=== PATIENT | male | born 1960 | race Caucasian/White ===

== ENCOUNTER 2016-12-06 17:25 | Emergency (ER) | payer OTHER ==
[~2016-12-06] VITALS: Ht 180.3 cm; Wt 99.8 kg
--- NOTE | ~2016-12-06 | US115 ---
[facility] A Service of [facility] & [facility] RADIOLOGY TEXT RESULTS PATIENT: MARIEL MADDEN LOCATION: NANCY : 58 UNIT #: [id number] AGE: [address]: Chung Hwang DO SEX: M ORDER DR: [id number] [facility] [address] [place], [place] [address] [id number] E MR#: [id number] #: [id number] NAME: MARIEL MADDEN : 1960 SEX: M STUDY DATE/TIME: 12/06/2016 18:35 UNIT: NANCY ROOM: STUDY DESCRIPTION: US Scrotum and Contents Attending Physician: Chung Hwang D.O. Ordering Physician: Chung Hwang D.O. Primary Care Physician: Prema Maharaj M.D. MEDICAL IMAGING REPORT This report is preliminary unless electronic signature is present EXAM Scrotal ultrasound 12/06/2016 HISTORY Left scrotal pain 4 hours with left flank pain. FINDINGS Real-time ultrasonography of the scrotal contents performed. Norris-scale color Doppler, Doppler pulse-wave interrogation utilized. No prior scrotal ultrasound for comparison. The right testis measures 4.33 cm x 2.30 cm x 2.67 cm. Arterial and venous flow present. The testis is normal in contour and echotexture with no testicular mass lesion seen. The right epididymis shows a cyst in the epididymal head region measuring 1.36 cm x 0.87 cm x 1.84 cm. It contains diffuse low-level internal echoes. This could be spermatozoa or debris within the cyst. The epididymis does not demonstrate hyperemia. No solid epididymal mass lesion is seen. There is a very small right hydrocele suggested. On the left the testis measures 4.36 cm x 2.43 cm x approximately 2.49 cm. There is arterial venous flow in the left testis. Along the inferolateral aspect of the left testis there is a large cystic structure measuring 3.25 cm x 2.16 cm x 2.72 cm. Homogeneous low-level internal echoes. Given its location I favor epididymal etiology. I favor that this is a very large epididymal cyst. I do not see mural nodularity or suspicious thick internal septations. The patient indicated to the urgent care nurse practitioner that there was a prior ultrasound. I do not have prior scrotal imaging at this institution. Comparison with prior studies recommended. Given the size of this finding, urology follow up is recommended. There is no free fluid in the left hemiscrotum. Within the left testis near the rete testis. There is a hypoechoic structure presumed to be a small cyst measuring 0.23 cm x 0.31 cm x 0.24 cm. Likely of rete testis. are derivation [facility] A Service of [facility] RADIOLOGY TEXT RESULTS PATIENT: MAR[facility]ADD[id number] [birth year] UNIT #: [id number] AGE: [address]: Chung Hwang DO SEX: M ORDER DR: IMPRESSION 1. The testes are normal in size and contour bilaterally with arterial and venous flow seen in the bilateral testes. 2. Within the left testis near the rete testis there is a markedly hypoechoic structure presumed to be a small cyst measuring up to about 3.1 mm in diameter and likely rete testis derivation. There is no clearly suspicious intratesticular abnormality. The patient gives a history of prior scrotal ultrasound. Comparison with prior study is recommended to confirm stability. In the absence of prior studies for comparison, consider 6-month ultrasound followup of this finding. 3. Within the left hemiscrotum in the region of the left epididymis there is a large cystic structure measuring up to 3.2 cm in diameter. It contains low-level internal echoes and is most consistent with large SPUR axial within the epididymis or a large epididymal cyst with internal debris. No solid component is suggested. No mural nodularity or thick internal septations. Again comparison with any prior studies would be useful. Given the size of the abnormality, consider urology followup for management. 4. In the right epididymal head there is a cyst/spermatocele measuring up to about 1.87 meters in maximum diameter. Again comparison with prior studies would be useful to assess for chronicity, any change in size. Dictated by... Tim Pinedo M.D. THIS IS AN ELECTRONICALLY VERIFIED REPORT Tim Pinedo M.D. at 12/07/2016 6:04 PM Zahra TD: 12/07/2016 08:06 JOB #: [id number] MEDICAL IMAGING REPORT Page 1 of 1 COPY
--- NOTE | ~2016-12-06 | CT4 ---
[facility] A Service of [facility] & [facility] RADIOLOGY TEXT RESULTS PATIENT: MARIEL MADDEN LOCATION: [facility] : 58 UNIT #: [id number] AGE: [address]: Chung Hawng DO SEX: M ORDER DR: [id number] [facility] [address] [place], [place] [address] [id number] E MR#: [id number] #: [id number] NAME: MARIEL MADDEN : 1960 SEX: M STUDY DATE/TIME: 12/06/2016 UNIT: NANCY ROOM: STUDY DESCRIPTION: CT Abd and Pelv Wo Cont Attending Physician: Chung Hwang D.O. Ordering Physician: Chung Hwang D.O. Primary Care Physician: Prema Maharaj M.D. MEDICAL IMAGING REPORT This report is preliminary unless electronic signature is present EXAM Abdomen and pelvis CT 12/07 at 00:01 hours INDICATIONS Left flank pain and left testicular pain that started today. Nausea and vomiting as well. History of kidney stones. TECHNIQUE Axial noncontrast images were obtained through the abdomen and pelvis. Multiplanar reformats were obtained. Comparison made with 07/13/2011. The CT exam was performed with one or more of the following radiation dose reduction techniques: automatic exposure control, adjustment of mA and/or kV according to patient size, and iterative reconstruction. . FINDINGS Abdomen: Granulomatous calcifications again noted in the left lung base. Gallbladder is contracted or surgically absent. Tiny nonobstructing stones are present in the right kidney. No ureteral stones are identified on either side and there is no hydronephrosis. The unenhanced solid organs are otherwise normal. Unopacified GI tract is normal. No free fluid is seen. Patient is status post aortobifemoral bypass. Patency of the graft cannot be assessed without IV contrast. Pelvis: There are no lower ureteral stones. The bladder is normal. The right anterior bladder extends toward a right inguinal hernia. This is less pronounced than on the old study. The appendix is normal. The remainder of the unopacified GI tract is normal as well. There is no free fluid. Postoperative changes noted in both groins. There is a stable circumscribed fluid collection anterior to the common femoral vasculature on the left. This could reflect a chronic postoperative seroma. It [facility] A Service of [facility] RADIOLOGY TEXT RESULTS PATIENT: MARIEL MADDEN LOCATION: [facility] : 58 UNIT #: [id number] AGE: [address]: Chung Hwang DO SEX: M ORDER DR: measures about 2 cm in diameter. Similar finding is present in the right side near the distal end of the graft. It measures about 1.9 cm. These lesions are indeterminate without IV contrast. 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 Fusion is noted at L2-3 with interbody spacer. There is sclerosis around the spacer. Degenerative disease does appear progressive. There is a right side L5 pars defect. IMPRESSION 1. No clearly acute process in the abdomen or pelvis. 2. Nonobstructing stones in the right kidney. No ureteral stones on either side and no hydronephrosis. 3. Normal unopacified GI tract, including the appendix. 4. Additional vascular findings as above. No free fluid in the abdomen or pelvis. Dictated by... Lenny Powell Jr., M.D. THIS IS AN ELECTRONICALLY VERIFIED REPORT Lenny Powell Jr., M.D. at 12/07/2016 9:35 PM RONDA/vipul TD: 12/07/2016 09:32 JOB #: [id number] MEDICAL IMAGING REPORT Page 1 of 1 COPY
[~2016-12-06 17:25] MED LIST: ABILIFY5 MG PO; ALLOPURINOL300 MG PO; AMBIEN PO; ARTHROTEC 751 TAB.E2 PO; ARTHROTEC EC 51 EACH PO; ARTHROTEC EC 71 EACH PO; ASPIRIN EC81 M1 PO; ASPIRIN PO; BAYER ASPIRIN325 M1 PO; BAYER CHEWABLE81 MG PO; BUDEPRION XL300 MG PO; CELEBREX50 MG PO; CELEXA PO; CHANTIX PO; CIPRO PO; CITALOPRAM HBR40 MG PO; COLACE50 MG/5 M1 PO; COMBIVENT RESPIM4 GM INH; COUMADIN PO; COUMADIN6 MG PO; COUMADIN7.5 MG PO; CRESTOR PO; CRESTOR40 MG PO; DILTIAZEM 24HR240 M2 PO; EC-NAPROSYN500 MG PO; FIORICET PO; FLEXERIL PO; FLEXERIL10 M1 PO; FLEXERIL10 MG PO; FLOMAX0.4 M1 PO; HYDRALAZINE HCL50 MG PO; HYDROCODON-ACE1 EAC4 PO; HYDROCODON-ACE1 EAC5 PO; HYDROCODONE-APA1 T51 PO; LANSOPRAZOLE15 MG PO; LANSOPRAZOLE30 M1 PO; LANSOPRAZOLE30 M2 PO; LANSOPRAZOLE30 MG PO; LEXAPRO; LEXAPRO PO; LIPITOR40 MG PO; LISINOPRIL PO; LISINOPRIL-HCTZ1 T16 PO; LISINOPRIL10 MG PO; LISINOPRIL20 MG PO; LOPID600 MG PO; LOPRESSOR PO; LORTAB 10-5001 EACH PO; LOSARTAN POTASS50 MG PO; LOVAZA PO; LOVAZA1 G PO; LYRICA75 MG PO; MEDROL DOSEPAK4 MG DOB; METOPROLOL TAR100 MG PO; METOPROLOL TART25 MG PO; NAPROSYN-EC500 M1 PO; NAPROSYN500 MG PO; NAPROXEN250 MG PO; NEURONTIN PO; ORUDIS75 M1 PO; OXYCONTIN PO; PERCOCET5/325 PO; PLAVIX PO; PLETAL100 M1 PO; PLETAL100 MG DOB; PLETAL100 MG PO; PLETAL50 MG PO; PREVACID PO; PRINIVIL20 M1 PO; PRINIVIL40 MG PO; PROTONIX40 MG/BLIS PO; RANEXA500 MG PO; TOPROL XL 50 MG50 MG PO; TOPROL XL50 MG PO; ULTRAM PO; VANCOCIN HCL250 M1 IV; VANCOMYCIN1.5 GM/251 IV; VANCOMYCIN1.5 GM/252 IV; VITAMIN D 4001 UDTAB PO; VOLTAREN75 MG PO; WELLBUTRIN XL PO; ZOFRAN ODT4 MG PO; ZOFRAN PO; ZYLOPRIM PO
[2016-12-06 20:17] LABS: BASOPHIL% 0.4 % (0-2.5); EOSINOPHIL# 0.1 X10e3 (0-0.7); EOSINOPHIL% 0.9 % (0.0-7.0); HEMATOCRIT 40.6 % (38.0-50.0); HEMOGLOBIN 13.5 gm/dL (13.0-16.0); LYMPHOCYTE# 3.5 X10e3 (1.0-3.5); LYMPHOCYTE% 29.5 % (17.0-45.0); MEAN CELL VOLUME 91.1 FL (83-96); MEAN CORPUSCULAR HEMOGLOBIN 30.2 PG (28-34); MEAN CORPUSCULAR HGB CONC 33.1 g/dL (30-36); MEAN PLATELET VOLUME 7.5 FL (6.5-11.5); MONOCYTE# 0.9 X10e3 (0-1.0); MONOCYTE% 7.1 % (3.0-12.0); NEUTROPHIL# 7.5 X10e3 (1.5-7.1); NEUTROPHIL% 62.1 % (40-75); PLATELET COUNT 285 X10e3 (140-420); RED BLOOD COUNT 4.45 X10e (3.90-5.60); RED CELL DISTRIBUTION WIDTH 16.1 % (11.0-15.5)
[2016-12-06 20:21] LABS: DIFF IND NO
[2016-12-06 21:27] LABS: ALBUMIN SERUM 4.8 g/dL (3.5-5.0); BILIRUBIN, DIRECT 0.1 mg/dL (0.0-0.2); BILIRUBIN,INDIRECT 0.9 mg/dL (0.0-0.9); BUN/CREATININE RATIO 25.55; CALCIUM SERUM 9.6 mg/dL (8.4-10.2); CREATININE SERUM 0.9 mg/dL (0.6-1.4); GLOM FILT RATE Estimated 94.5 mL/min (>60); POTASSIUM 4.4 mmol/L (3.5-5.1); PROTEIN TOTAL SERUM 7.8 g/dL (6.0-8.3)
[2016-12-07 00:24] LABS: URINE SOURCE CLEAN CATCH
[2016-12-07 00:39] LABS: URINE APPEARANCE CLEAR; URINE BILIRUBIN NEG (NEG); URINE BLOOD NEG (NEG); URINE COLOR YELLOW; URINE GLUCOSE NEG (NEG); URINE KETONE NEG (NEG); URINE LEUKOCYTE ESTERASE NEG (NEG); URINE NITRATE NEG (NEG); URINE PH 6.5 (5-8); URINE PROTEIN NEG (NEG); URINE SPECIFIC GRAVITY 1.023 (1.003-1.035)
[2016-12-07 00:44] LABS: CULTURE INDICATED? NO
== END 2016-12-07 02:10 | disposition home or self-care (01) ==
LOC: CED 17:25
DX: N50.812 Left testicular pain (principal); N41.9 Inflammatory disease of prostate, unspecified; I10 Essential (primary) hypertension; M54.9 Dorsalgia, unspecified; I71.4 Abdominal aortic aneurysm, without rupture; F32.9 Major depressive disorder, single episode, unspecified; Z98.890 Other specified postprocedural states
CPT/HCPCS: 36415; 74176; 76870; 80048; 80076; 81003; 85025; 96374; 96375; 99284; J1885; J2270; J2405